=== PATIENT | female | born 1995 | race Caucasian/White ===

== ENCOUNTER → 2017-01-14 | Outpatient (CLI) | payer BC, OTHER ==
[2017-01-14 11:45] LABS: CHCM 34.9; HCT 39.2 % (34.0-46.0); HDW 2.59; MCH 30.5 pg (25.0-35.0); MCHC 33.1 g/dL (31.0-37.0); MCV 92.2 fL (80.0-100.0); Mean Platelet Volume 7.4; RBC 4.25 m/uL (3.80-5.40); RDW 13.9 % (11.5-15.5); WBC 10.2 k/uL (3.8-10.6)
[2017-01-14 12:08] LABS: Glucose 87 mg/dL (74-99); Non-African American GFR(MDRD) >60 (>60 ml/min/1.73 sqM)
[2017-01-14 12:31] LABS: Hepatitis B Surface Ag Index 0.04
[2017-01-14 15:32] LABS: Treponemal Ab Non-Reactive (Non-Reactive)
== END | disposition home or self-care (01) ==
LOC: LABWHC1 10:56
PROVIDERS: ATTEND Obstetrics & Gynecology
DX: O26.812 Pregnancy related exhaustion and fatigue, second trimester (principal); Z3A.00 Weeks of gestation of pregnancy not specified
CPT/HCPCS: 36415; 82565; 82947; 85027; 86762; 86780; 86850; 86900; 86901; 87340; 87390

== ENCOUNTER 2017-04-30 15:07 | Outpatient (CLI) | payer BC, OTHER ==
[2017-04-30 16:12] VITALS: BP 131/74; PULSE 110; RESP 16; TEMP 97.8
--- NOTE | 2017-05-01 06:21 | P.MSEPDOC ---
Presenting Problems - Arrival Data Date of Arrival on Unit: 04/30/17 Time of Arrival on Unit: 15:15 Mode of Transport: Ambulatory - Complaint OB-Reason for Admission/Chief Complaint: Decreased Movement Comment: reports decreased fm since yesterday morning Medical History - Information : 1 Para: 0 Term: 0 : 0 Abortions: Spontaneous or Elective: 0 Number of Living Children: 0 - Gestational Age Gestational Age by KISHA (wks/days): 28 Weeks and 4 Days Review of Systems - Review of Systems Constitutional: No problems Breast: No problems ENT: No problems Cardiovascular: No problems Respiratory: No problems Gastrointestinal: No problems Genitourinary: No problems Musculoskeletal: No problems Neurological: No problems Skin: No problems Vital Signs - Temperature Temperature: 97.8 F Temperature Source: Oral - Pulse Right Brachial Pulse Rate: 110 Pulse Assessment Method: Automatic Cuff - Respirations Respiratory Rate: 16 Oxygen Delivery Method: Room Air - Blood Pressure Right Arm Blood Pressure: 131/74 Blood Pressure Mean: 93 Blood Pressure Source: Automatic Cuff Medical Screen Scoring (Pre) - Cervical Exam Dilation: Exam Deferred - Uterine Contractions Frequency: N/A - Maternal Vital Signs Maternal Temperature: N/A Maternal Blood Pressure: N/A Signs of Preeclampsia: N/A Maternal Respirations: N/A - Pain Assessment Pain Intensity: 0 - Maternal Trauma Maternal Trauma: N/A - Assessment Heart Rate - NICHD Category: Category I (Normal) = 0 - Total Score Total Score (Pre): 0 - Level of Risk Level of Risk: Low (0-5) Physician Notification (Pre) - Physician Notified Physician Notified Date: 04/30/17 Physician Notified Time: 15:45 Physician/Practitioner Notifed:: margo Spoke With: margo New Order Received: Yes - Notification Comment Comment: reported pt visit to triage reporting decreased fm. reported reactive nst and positive fm. aragon orders discharge with fm education Disposition - Disposition OB Disposition: Discharge to home Discharge Date: 04/30/17 Discharge Time: 15:56 I agree with the RN Medical Screening Exam: Yes Risk & Benefit of care provided described in d/c instruction: Yes Diagnosis: DECREASED MOVEMENTS, THIRD TRIMESTER, FETUS 1
== END 2017-04-30 15:56 | disposition home or self-care (01) ==
LOC: FBPOP 15:07
PROVIDERS: ATTEND Obstetrics & Gynecology
DX: O36.8130 Decreased fetal movements, third trimester, not applicable or unspecified (principal); Z3A.28 28 weeks gestation of pregnancy
CPT/HCPCS: 59025; 99213

== ENCOUNTER 2017-07-08 11:20 | Inpatient (IN) | payer BC, OTHER ==
[2017-07-08 12:44] LABS: Appearance,Urine Cloudy (Clear); Bacteria,Urine Occasional /hpf; Bilirubin,Urine Negative (Negative); Blood,Urine Negative (Negative); Color,Urine Yellow; Glucose,Urine (UA) Negative (Negative); Ketones,Urine Negative (Negative); Leukocyte Esterase,Urine Negative (Negative); Mucus,Urine Occasional /hpf; Nitrite,Urine Negative (Negative); Protein,Urine Trace (Negative); RBC,Urine 4 /hpf (0-5); Squamous Epithelial Cell,Urine 9 /hpf (0-4); Urobilinogen,Urine <2.0 mg/dL (<2.0); WBC,Urine 5 /hpf (0-5)
[2017-07-08 12:47] LABS: Basophils % (A) 0 %; Eosinophils # (A) 0.1 k/uL (0-0.7); Eosinophils % (A) 1 %; HCT 36.6 % (34.0-46.0); HGB 12.1 gm/dL (11.4-16.0); Lymphocytes # (A) 1.3 k/uL (1.0-4.8); Lymphocytes % (A) 12 %; MCH 29.2 pg (25.0-35.0); MCV 88.4 fL (80.0-100.0); Monocytes # (A) 0.5 k/uL (0-1.0); Monocytes % (A) 5 %; Neutrophils # (A) 9.3 k/uL (1.3-7.7); Neutrophils % (A) 82 %; Platelet Count 178 k/uL (150-450); RBC 4.14 m/uL (3.80-5.40); RDW 13.7 % (11.5-15.5); WBC 11.3 k/uL (3.8-10.6)
[2017-07-08 12:59] LABS: ALT 28 U/L (9-52); AST 20 U/L (14-36); Blood Urea Nitrogen 9 mg/dL (7-17); Glucose 66 mg/dL (74-99); LDH 410 U/L (313-618)
--- NOTE | 2017-07-08 13:16 | US ---
EXAMINATION TYPE: US OB >= 14 wk fetus DATE OF EXAM: 07/08/2017 COMPARISON: None CLINICAL HISTORY: Increased BP, Gestational diabetes, pressure, swelling in hands and feet per gerhard payan TECHNIQUE: Transabdominal (TA) GESTATIONAL AGE / DATING Physician Established: (38 weeks/3 days) EDC: 07/19/2017 Dates by LMP: (38 weeks/3 days) EDC: 07/19/2017 Dates by First Scan: No previous this is first scan Dates by Current Scan: (39 weeks/4 days) EDC: 07/11/2017 Beta HCG (if available): Not available at this time SURVEY IUP: Single PLACENTA: Anterior PREVIA: No Previa NICOLE: 13.2 cm Normal CERVICAL LENGTH (transabdominal: norm > 3.0cm): 3.7 cm BIOMETRY PRESENTATION: Vertex LIE: Longitudinal BPD: 9.38 cm 38 weeks / 1 days HC: 34.23 cm 39 weeks / 3 days AC: 36.14 cm 40 weeks / 0 days FL: 7.94 cm 40 weeks / 4 days ESTIMATED WEIGHT IN GRAMS: 3906 grams ESTIMATED WEIGHT IN LBS/OZ: 8 lbs. 10 oz. WEIGHT PERCENTAGE BASED ON ESTABLISHED DATES: 91.6% HC/AC: 0.95 Normal FL/AC: 21.97 Normal HEART RATE: 148 bpm RHYTHM: Normal MATERNAL WALL MEASUREMENT: 4.1 cm from skin to anterior uterine wall (if exam limited due to body hab itus). Viable IUP with an KISHA of 07/11/2017 on this exam. Hypoechoic area visualized within placenta measuri ng 0.8 x 0.9 x1.0 cm, possible placental harrington The placenta is anterior. IMPRESSION: Single viable intrauterine corresponding to ultrasound age of 39 weeks 4 days with estimate d date of delivery 07/11/2017. Anterior placenta. Limited survey.
[2017-07-08] MEDS ORDERED: CITRIC ACID-SODIUM CITRATE 15 ML CUP PO ONE (15:00)
[2017-07-08 15:06] LABS: Glucose,Whole Blood 72 mg/dL (75-99)
[2017-07-08 15:21] VITALS: BMI 43.9
[2017-07-08 15:24] LABS: Basophils % (A) 0 %; Eosinophils # (A) 0.1 k/uL (0-0.7); Eosinophils % (A) 1 %; HCT 38.6 % (34.0-46.0); HGB 12.9 gm/dL (11.4-16.0); Lymphocytes # (A) 1.4 k/uL (1.0-4.8); Lymphocytes % (A) 11 %; MCH 29.8 pg (25.0-35.0); MCHC 33.5 g/dL (31.0-37.0); Mean Platelet Volume 8.2; Monocytes # (A) 0.6 k/uL (0-1.0); Monocytes % (A) 5 %; Neutrophils # (A) 10.1 k/uL (1.3-7.7); Neutrophils % (A) 82 %; Platelet Count 200 k/uL (150-450); RBC 4.34 m/uL (3.80-5.40); RDW 13.8 % (11.5-15.5); WBC 12.3 k/uL (3.8-10.6)
[2017-07-08] MEDS: LACTATED RINGERS 1,000 ML IV SCH ×2 (15:55→21:02)
[2017-07-08] MEDS ORDERED: ONDANSETRON 4 MG/2 ML VIAL ONE (17:05)
[2017-07-08] MEDS ORDERED: MORPHINE SULFATE (PF) 0.3 MG/0.3 ML SYR ONE (17:05)
[2017-07-08] MEDS ORDERED: OXYTOCIN 10 UNIT/ML 1 ML VIAL ONE (17:05)
[2017-07-08] MEDS ORDERED: NALBUPHINE 10 MG/ML AMPUL ONE (17:05)
[2017-07-08] MEDS ORDERED: KETOROLAC 30 MG/ML 1 ML VIAL ONE (17:05)
[2017-07-08] MEDS ORDERED: diphenhydrAMINE 25 MG CAP PO PRN (17:45)
[2017-07-08] MEDS ORDERED: METOCLOPRAMIDE 5 MG/ML 2 ML VIAL IVP PRN (17:45)
[2017-07-08] MEDS ORDERED: diphenhydrAMINE 50 MG CAP PO PRN (17:45)
[2017-07-08] MEDS ORDERED: ACETAMINOPHEN TAB 325 MG TAB PO PRN (17:45)
[2017-07-08] MEDS ORDERED: ONDANSETRON 4 MG/2 ML VIAL IVP PRN (17:45)
[2017-07-08] MEDS ORDERED: ZOLPIDEM 5 MG TAB PO PRN (17:45)
[2017-07-08] MEDS ORDERED: NALOXONE 0.4 MG/ML 1 ML VIAL IV PRN (17:45)
[2017-07-08] MEDS ORDERED: diphenhydrAMINE 50 MG/ML 1 ML VIAL IVP PRN ×2 (17:45)
--- NOTE | 2017-07-08 17:51 | P.HPOB ---
History of Present Illness H&P Date: 07/08/17 Chief Complaint: IUP term: gest hypertension: gest DM: macrosomia Patient is a 22-year-old at 38 weeks gestation who arrives the office today for her visit. On exam was noted that she had an elevated blood pressure of 130s over 90s. And with her history of gestational diabetes a decision to send her to labor and delivery for full evaluation was done. One labor and delivery she continued to have mildly elevated blood pressures on occasion. It is noted that she also has 2+ pitting edema and hand and facial edema and a 10 pound weight gain last week. She also has trace protein and her platelets are noted to be low normal. Concern over gestational hypertension versus early preeclampsia was made and therefore decision to deliver her today was made. A lengthy discussion was held with the patient due to her history of gestational diabetes and suspected macrosomia on whether not to proceed with induction of labor versus moving forward with a primary section. Risks /benefits of each were discussed with the patient in great detail and all questions were answered for her prior to proceeding with a primary section. It was noted on ultrasound today that the expected weight was 8 lbs. 10 oz. but these are often off by a significant margin due to advanced size the baby as well as position. That number however, is greater than the 95th percentile and with her history of gestational diabetes she is at increased risk of shoulder dystocia and its resultant competitions. Due to that a primary has been scheduled. Risks/benefits of this including bleeding, infection, damage to bladder or bowel, vascular injuries, nerve damage were all reviewed with the patient in detail. On physical exam other than mild elevation of blood pressure her vital signs are stable. She is afebrile. Heart regular, lungs clear, extremities without pain. Abdomen is soft gravid uterus is noted. She is noted to be obese. Extremities are without pain but do have some pitting edema. Deep tendon reflexes are 2+. Assessment intrauterine at 38 weeks with gestational hypertension and a Precis, K by gestational diabetes for which she has been on insulin and has seen maternal medicine. Plan primary low transverse section Past Medical History Past Medical History: No Reported History Additional Past Medical History / Comment(s): ovarian cyst History of Any Multi-Drug Resistant Organisms: None Reported Past Surgical History: Appendectomy Past Anesthesia/Blood Transfusion Reactions: No Reported Reaction Past Psychological History: ADD/ADHD, Anxiety Smoking Status: Current every day smoker Past Alcohol Use History: Occasional Past Drug Use History: None Reported - Past Family History Father History Unknown: Yes Additional Family Medical History / Comment(s): mother diabetes and hypertension Medications and Allergies Home Medications Medication Instructions Recorded Confirmed Type INSULIN LISPRO (humaLOG) [humaLOG] 16 units SQ DIRECTED 07/08/17 07/08/17 History INSULIN LISPRO (humaLOG) [humaLOG] 18 units SQ AC-SUPPER 07/08/17 07/08/17 History Insulin Aspart [Novolog] 22 unit SQ QAM 07/08/17 07/08/17 History Insulin Aspart [Novolog] 32 unit SQ HS 07/08/17 07/08/17 History Ttl-Wawu-Snnmn Acid 1 cap PO DAILY 07/08/17 07/08/17 History [-U Capsule (formulary)] Allergies Allergy/AdvReac Type Severity Reaction Status Date / Time No Known Allergies Allergy Verified 07/08/17 11:39 Exam Osteopathic Statement: *. No significant issues noted on an osteopathic structural exam other than those noted in the History and Physical/Consult. - Vital Signs Vital signs: Vital Signs Temp Pulse Resp 07/08/17 14:44 98.6 F 97 16 Intake and Output 07/08/17 07/08/17 07/08/17 06:59 14:59 22:59 Other: Weight 138.799 kg Results Result Diagrams: 07/08/17 14:55 07/08/17 12:31 Abnormal Lab Results - Last 24 Hours (Table) 07/08/17 07/08/17 07/08/17 Range/Units 11:20 12:31 12:31 WBC 11.3 H (3.8-10.6) k/uL Neutrophils # 9.3 H (1.3-7.7) k/uL Glucose 66 L (74-99) mg/dL POC Glucose (mg/dL) (75-99) mg/dL Urine Appearance Cloudy H (Clear) Urine Protein Trace H (Negative) Ur Squamous Epith Cells 9 H (0-4) /hpf Urine Bacteria Occasional H (None) /hpf Urine Mucus Occasional H (None) /hpf 07/08/17 07/08/17 Range/Units 14:52 14:55 WBC 12.3 H (3.8-10.6) k/uL Neutrophils # 10.1 H (1.3-7.7) k/uL Glucose (74-99) mg/dL POC Glucose (mg/dL) 72 L (75-99) mg/dL Urine Appearance (Clear) Urine Protein (Negative) Ur Squamous Epith Cells (0-4) /hpf Urine Bacteria (None) /hpf Urine Mucus (None) /hpf
--- NOTE | 2017-07-08 17:55 | P.OP ---
Date of Procedure: 07/08/17 Preoperative Diagnosis: intrauterine at term: Gestational hypertension: Gestational diabetes: Macrosomia Postoperative Diagnosis: Same Procedure(s) Performed: Primary low transverse section Anesthesia: spinal Surgeon: Franklin Sheffield Adhesion Tester #1: Connor Rogel Estimated Blood Loss (ml): 600 IV fluids (ml): 1,200 Urine output (ml): 200 Pathology: other (Placenta) Condition: stable Disposition: floor Operative Findings: Female scores of 8 and 9 at one and 5 inches Ramya and weight was 9 lbs. 0 oz. Description of Procedure: Patient was taken to the operating suite where a spinal anesthetic was found be adequate. She was prepped and draped in the normal sterile fashion and placed in the dorsal supine position with leftward tilt. Initially a Pfannenstiel skin incision was made and this incision was then carried through to underlying layer of the fascia with the second knife. Fascia was then nicked in the midline and this opening was extended laterally with Fuller scissors. Superior and inferior aspect of this incision were then grasped tented up and bluntly and sharply dissected off the rectus muscles. Rectus muscles were then divided in the midline and sharp dissection through the peritoneum was made. This opening was then extended superiorly and inferiorly with good visualization of both bowel bladder. Bladder blade was then placed and the bladder flap was identified and entered sharply with Metzenbaum scissors. This opening was then extended across face of the uterus with Metzenbaum scissors and her bladder flap was digitally created. Knife was then used to incise uterus this opening was fully developed with a hemostat. Opening was then extended bluntly and head was atraumatically delivered. There was a compound cord. Head was delivered mouth and nares were bulb suctioned and the anterior and posterior shoulders were delivered with gentle downward and upward traction. The remainder the baby was then delivered and the umbilical cord was clamped and cut in usual fashion. Nursery personnel was present to assume care. Placenta was then delivered intact and Pitocin was added to the IV. Uterus was then exteriorized cleared of clots and debris and closed in 2 layers with 0 Vicryl suture. Once excellent hemostasis was obtained blood and debris was suctioned from the posterior cul-de-sac and uterus was reinserted into the abdomen. Peritoneal layer was then closed with 0 Vicryl suture fascial layer was closed with Vicryl suture one layer of 3-0 Vicryl was placed in deep subcuticular tissues reapproximate the skin and close the space and the skin was then closed with 3-0 Vicryl on a Fransisco needle. Sponge, lap, needle counts were all correct 2. Patient was then taken to the recovery room in stable and satisfactory condition.
[2017-07-08] MEDS: SENNOSIDES-DOCUSATE SODIUM 1 EACH TAB PO SCH (21:43)
[2017-07-08] MEDS: KETOROLAC 30 MG/ML 1 ML VIAL IVP PRN (23:28)
[2017-07-08] MEDS: ceFAZolin 1,000 MG in DEXTROSE/WATER 1 50ML.BAG IVPB SCH (23:57)
[2017-07-09] MEDS: LACTATED RINGERS 1,000 ML IV SCH (06:12)
[2017-07-09] MEDS: ceFAZolin 1,000 MG in DEXTROSE/WATER 1 50ML.BAG IVPB SCH ×2 (06:13→13:22)
[2017-07-09 06:15] LABS: Basophils % (A) 0 %; Eosinophils # (A) 0.1 k/uL (0-0.7); Eosinophils % (A) 1 %; HCT 31.3 % (34.0-46.0); HGB 10.8 gm/dL (11.4-16.0); Lymphocytes # (A) 1.6 k/uL (1.0-4.8); Lymphocytes % (A) 17 %; MCH 30.5 pg (25.0-35.0); MCHC 34.4 g/dL (31.0-37.0); MCV 88.6 fL (80.0-100.0); Mean Platelet Volume 7.8; Monocytes # (A) 0.5 k/uL (0-1.0); Monocytes % (A) 5 %; Neutrophils # (A) 7.1 k/uL (1.3-7.7); Neutrophils % (A) 75 %; Platelet Count 162 k/uL (150-450); RBC 3.53 m/uL (3.80-5.40); RDW 13.7 % (11.5-15.5); WBC 9.4 k/uL (3.8-10.6)
--- NOTE | 2017-07-09 07:57 | P.PN ---
Progress Note - Text Date: 07/09/2017 Time: 07 The patient is status post section Vital signs stable VAS:0-10 Patient has no complaints of pain. The patient incurred some minimal itching yesterday, this itching is now subsiding. Pain meds to be managed by service.
[2017-07-09] MEDS: SENNOSIDES-DOCUSATE SODIUM 1 EACH TAB PO SCH ×2 (08:11→20:01)
[2017-07-09] MEDS: KETOROLAC 30 MG/ML 1 ML VIAL IVP PRN ×2 (11:10→18:06)
--- NOTE | 2017-07-09 13:24 | P.PNOBGPC ---
Subjective - Subjective Principal diagnosis: Postop day 1 Interval history: Doing very well, voices no complaints. Patient reports: Reports appetite normal, Reports voiding normally, Reports pain well controlled, Reports ambulating normally : doing well Objective - Vital Signs Latest vital signs: Vital Signs Temp Pulse Resp BP BP Pulse Ox 07/09/17 08:00 98.1 F 80 14 121/73 07/09/17 00:00 97.9 F 80 16 121/71 95 07/08/17 20:00 98.0 F 65 16 122/56 98 07/08/17 19:33 97.7 F 76 16 134/61 98 07/08/17 19:03 64 16 145/75 07/08/17 18:48 76 16 134/68 07/08/17 18:33 99 18 136/64 07/08/17 18:18 83 16 117/66 07/08/17 18:03 98.3 F 68 16 118/66 07/08/17 14:44 98.6 F 97 16 Intake and Output 07/08/17 07/09/17 07/09/17 22:59 06:59 14:59 Intake Total 50 Output Total 800 900 300 Balance -800 -850 -300 Intake: IV 50 ceFAZolin 1,000 mg In 50 Dextrose/Water 1 50ml.bag @ 100 mls/hr IVPB Q6HR [facility] Rx#:[id number] Output: Urine 900 300 Uretheral ([place]ley) 450 Estimated Blood Loss 800 Other: Voiding Method Indwelling Catheter # Voids 1 - Exam Lungs: bilateral: normal Chest: Normal S1, Normal S2 Extremities: Present: normal Abdomen: Present: normal appearance, soft. Absent: distention, tenderness Incision: Present: normal, dry, intact Uterus: Present: normal, firm - Labs Labs: Abnormal Lab Results - Last 24 Hours (Table) 07/08/17 07/08/17 07/09/17 Range/Units 14:52 14:55 05:59 WBC 12.3 H (3.8-10.6) k/uL RBC 3.53 L (3.80-5.40) m/uL Hgb 10.8 L (11.4-16.0) gm/dL Hct 31.3 L (34.0-46.0) % Neutrophils # 10.1 H (1.3-7.7) k/uL POC Glucose (mg/dL) 72 L (75-99) mg/dL
[2017-07-09 14:16] LABS: Hemoglobin A1C 5.2 % (4.0-6.0)
[2017-07-10] MEDS: Acetaminophen-Codeine 300-30mg TAB PO PRN ×2 (00:49→05:53)
[2017-07-10] MEDS: LACTATED RINGERS 1,000 ML IV SCH ×4 (01:14→04:48)
[2017-07-10] MEDS: IBUPROFEN 600 MG TAB PO PRN ×3 (02:05→19:59)
--- NOTE | 2017-07-10 08:53 | P.PNOBGPC ---
Subjective - Subjective Principal diagnosis: Postop day 2 Interval history: Overall patient is doing very well postop day 2. She is involuting, voiding and she is tolerating her diet. She is requesting to stay until tomorrow at which time we will reevaluate for discharge. Patient reports: Reports appetite normal, Reports voiding normally, Reports pain well controlled, Reports ambulating normally [place]: doing well Objective - Vital Signs Latest vital signs: Vital Signs Temp Pulse Resp BP Pulse Ox 07/10/17 00:00 98.1 F 93 18 127/71 97 07/09/17 16:00 98.8 F 78 14 115/78 07/09/17 12:00 98.1 F 84 14 122/67 - Exam Lungs: bilateral: normal Chest: Normal S1, Normal S2 Extremities: Present: normal Abdomen: Present: normal appearance, soft. Absent: distention, tenderness Incision: Present: normal, dry, intact Uterus: Present: normal, firm
[2017-07-10] MEDS ORDERED: HYDROcodone/APAP 5-325MG 1 EACH TAB PO PRN (09:35)
[2017-07-10] MEDS: HYDROcodone/APAP 5-325MG 1 EACH TAB PO PRN ×3 (09:50→23:01)
[2017-07-10] MEDS: SENNOSIDES-DOCUSATE SODIUM 1 EACH TAB PO SCH ×2 (10:01→23:02)
[2017-07-11] MEDS: IBUPROFEN 600 MG TAB PO PRN ×2 (02:23→08:14)
[2017-07-11] MEDS: HYDROcodone/APAP 5-325MG 1 EACH TAB PO PRN ×2 (06:18→13:22)
[2017-07-11] MEDS: SENNOSIDES-DOCUSATE SODIUM 1 EACH TAB PO SCH (08:15)
[2017-07-11 08:34] VITALS: BP 119/71; PULSE 86; RESP 18; TEMP 97.5
--- NOTE | 2017-07-11 10:55 | P.DS ---
Providers Date of admission: 07/08/17 13:59 Expected date of discharge: 07/11/17 Attending physician: Franklin Sheffield Primary care physician: Stated None Hospital Course: Please see history and physical for details of patient's admission. She underwent a primary low transverse section on 07/08/2017 and delivered a viable female with scores of 8 at 1 minute and 9 at 5 minutes and infant weight of 9 lbs. 0 oz. Her postoperative course has been essentially uncomplicated. Vital signs are stable. Abdomen is soft with positive bowel sounds 4. Incision is clean dry and intact. Extremities show negative Homans. Impression is status post prior very low transverse section postoperative day #3. Plan is to discharge home today. Routine postoperative and instructions are given. She is advised to follow- up Dr. Sheffield in approximately 1-2 weeks and in 6 weeks for check. She is advised to call the office if she has any further questions or concerns prior to her appointment time. Procedures: Primary low transverse section on 07/08/2017 Patient Condition at Discharge: Stable Plan - Discharge Summary New Discharge Prescriptions: New Acetaminophen-Codeine 300-30mg [Tylenol #3] 1 tab PO Q4H PRN #30 tablet PRN Reason: Pain Ibuprofen [Motrin] 600 mg PO Q6HR PRN #30 tab PRN Reason: Pain HYDROcodone/APAP 5-325MG [[place] 5-325] 1 tab PO Q4HR PRN #30 tab PRN Reason: Pain No Action Sci-Zrof-Gpgqt Acid [-U Capsule (formulary)] 1 cap PO DAILY INSULIN LISPRO (humaLOG) [humaLOG] 16 units SQ DIRECTED Insulin Aspart [Novolog] 32 unit SQ HS Insulin Aspart [Novolog] 22 unit SQ QAM INSULIN LISPRO (humaLOG) [humaLOG] 18 units SQ AC-SUPPER Discharge Medication List INSULIN LISPRO (humaLOG) [humaLOG] 16 units SQ DIRECTED 07/08/17 [History] INSULIN LISPRO (humaLOG) [humaLOG] 18 units SQ AC-SUPPER 07/08/17 [History] Insulin Aspart [Novolog] 22 unit SQ QAM 07/08/17 [History] Insulin Aspart [Novolog] 32 unit SQ HS 07/08/17 [History] Rda-Uvjc-Dfxxi Acid [-U Capsule (formulary)] 1 cap PO DAILY [History] Acetaminophen-Codeine 300-30mg [Tylenol #3] 1 tab PO Q4H PRN #30 tablet [Rx] HYDROcodone/APAP 5-325MG [[place] 5-325] 1 tab PO Q4HR PRN #30 tab 07/10/17 [Rx] Ibuprofen [Motrin] 600 mg PO Q6HR PRN #30 tab 07/10/17 [Rx] Follow up Appointment(s)/Referral(s): Franklin Sheffield DO [Doctor of Osteopathic Medicine] - 1 Week Activity/Diet/Wound Care/Special Instructions: No heavy lifting, limit stairs and driving and pelvic rest. If any high temperatures, heavy bleeding, or severe pain call my office. Try to wash the incision to 3 times a day with gentle soap and water and Pat dry. Discharge Disposition: HOME SELF-CARE
== END 2017-07-11 13:00 | disposition home or self-care (01) | DRG 766 ==
LOC: FBPOP 11:20 → 4FBP 13:59
PROVIDERS: ADMIT Obstetrics & Gynecology; ATTEND Obstetrics & Gynecology
PROC: 10D00Z1 Extraction of Products of Conception, Low, Open Approach (ICD-10-PCS; principal; 2017-07-08 17:15)
DX: O13.4 Gestational [pregnancy-induced] hypertension without significant proteinuria, complicating childbirth (principal); O24.424 Gestational diabetes mellitus in childbirth, insulin controlled; F41.9 Anxiety disorder, unspecified; O36.63X0 Maternal care for excessive fetal growth, third trimester, not applicable or unspecified; O99.334 Smoking (tobacco) complicating childbirth; F90.9 Attention-deficit hyperactivity disorder, unspecified type; O99.344 Other mental disorders complicating childbirth; O32.6XX0 Maternal care for compound presentation, not applicable or unspecified; Z37.0 Single live birth; Z3A.38 38 weeks gestation of pregnancy; Z83.3 Family history of diabetes mellitus; Z82.49 Family history of ischemic heart disease and other diseases of the circulatory system; Z98.890 Other specified postprocedural states
CPT/HCPCS: 59025; 76805; 81001; 82565; 82947; 83036; 83615; 84450; 84460; 84520; 84550; 85025; 86850; 86900; 86901; 88307

== ENCOUNTER 2018-03-01 13:57 | Emergency (ER) | payer BC, OTHER ==
[2018-03-01 14:09] VITALS: RESP 18; TEMP 98.1
[2018-03-01] MEDS ORDERED: LIDOCAINE 1% INJ 10MG/ML (20 ML MDV) SQ STA (16:30)
[2018-03-01 16:31] LABS: Appearance,Urine Cloudy (Clear); Bacteria,Urine Rare /hpf; Bilirubin,Urine Negative (Negative); Blood,Urine Negative (Negative); Color,Urine Yellow; Glucose,Urine (UA) Negative (Negative); Ketones,Urine Negative (Negative); Leukocyte Esterase,Urine Negative (Negative); Mucus,Urine Many /hpf; Nitrite,Urine Negative (Negative); PH, Urine 5.5 (5.0-8.0); Protein,Urine Trace (Negative); RBC,Urine 7 /hpf (0-5); Specific Gravity,Urine 1.023 (1.001-1.035); Squamous Epithelial Cell,Urine 12 /hpf (0-4); Urobilinogen,Urine <2.0 mg/dL (<2.0)
--- NOTE | 2018-03-01 17:03 | ED ---
General Adult HPI - General Chief complaint: Skin/Abscess/Foreign Body Stated complaint: needs cyst drained Source: patient, RN notes reviewed, old records reviewed Mode of arrival: ambulatory Limitations: no limitations - History of Present Illness Initial comments: 22-year-old female patient presents to ED with 5 day history of pain at intergluteal cleft. patient is , 12 weeks gestation. Patient has a history of pilonidal cyst approximately 5 years ago. patient was seen by primary care physician earlier today for evaluation of potential pilonidal cyst. Patient was referred to ED in order to attempt an I&D. Patient denies any other symptoms including fever chills, nausea vomiting diarrhea, abdominal pain, chest pain, shortness of breath. Systemic: Pt denies fatigue, myalgia, fever/chills, rash. Pt denies weakness, night sweats, weight loss. Neuro: Pt denies headache, visual disturbances, syncope or pre-syncope. HEENT: Pt denies ocular discharge or irritation, otalgia, rhinorrhea, pharyngitis or notable lymphadenopathy. Cardiopulmonary: Pt denies chest pain, SOB, heart palpitations, dyspnea on exertion. Abdominal/GI: Pt denies abdominal pain, n/v/d. : Pt denies dysuria, burning w/ urination, frequency/urgency. Denies new onset urinary or bowel incontinence. MSK: Pt denies myalgia, loss of strength or function in extremities. - Related Data Home Medications Medication Instructions Recorded Confirmed Hzp-Pxoa-Nkplq Acid 1 cap PO DAILY 07/08/17 03/01/18 [-U Capsule (formulary)] Previous Rx's Medication Instructions Recorded Cephalexin [Keflex] 500 mg PO Q6HR 7 Days #28 cap 03/01/18 Allergies Allergy/AdvReac Type Severity Reaction Status Date / Time No Known Allergies Allergy Verified 03/01/18 14:41 Review of Systems ROS Statement: Those systems with pertinent positive or pertinent negative responses have been documented in the HPI. ROS Other: All systems not noted in ROS Statement are negative. Past Medical History Past Medical History: No Reported History Additional Past Medical History / Comment(s): ovarian cyst History of Any Multi-Drug Resistant Organisms: None Reported Past Surgical History: Appendectomy, Section Past Anesthesia/Blood Transfusion Reactions: No Reported Reaction Past Psychological History: ADD/ADHD, Anxiety Smoking Status: Current every day smoker Past Alcohol Use History: None Reported Past Drug Use History: None Reported - Past Family History Father History Unknown: Yes Additional Family Medical History / Comment(s): mother diabetes and hypertension General Exam - General Exam Comments Initial Comments: Constitutional: NAD, AOX3, Pt has pleasant affect. HEENT: NC/AT, trachea midline, neck supple, no lymphadenopathy. Posterior pharynx non erythematous, without exudates. External ears appear normal, without discharge. Mucous membranes moist. Eyes PERRLA, EOM intact. There is no scleral icterus. No pallor noted. Cardiopulmonary: RRR, no murmurs, rubs or gallops, no JVD noted. Lungs CTAB in anterior and posterior mueller. No peripheral edema. Abdominal exam: Abdomen soft and non-distended. Abdomen non-tender to palpation in all 4 quadrants. Bowel sounds active in LLQ. No hepatosplenomegaly. Neuro: CN II-XII grossly intact. rectal: Approximately 3 x 3 cm erythematous area at the apex of the intergluteal cleft. There is warm, tender to palpation. No streaking. Area of minimal fluctuance and coccyx. I&D was attempted. No purulent fluid was expressed. External rectal exam otherwise benign, no other areas of erythema. Limitations: no limitations Course Vital Signs 03/01/18 03/01/18 03/01/18 14:05 16:13 18:04 Temperature 98.1 F Pulse Rate 124 H 85 80 Respiratory 18 18 18 Rate Blood Pressure 135/85 131/80 110/75 O2 Sat by Pulse 100 98 98 Oximetry Procedures - Incision & Drainage Consent Obtained: verbal consent Time Out Performed?: Yes Site: buttock Anesthetic Used: lidocaine 1% Amount (mLs): 2 I&D Cleaning Method: Chloroprep, Betadine Sterile Field Used?: Yes Scalpel Used: #11 I&D Drainage Obtained: Other (zero) Medical Decision Making - Medical Decision Making 22-year-old female patient presents to ED with 5 day history of pain at intergluteal cleft. patient is , 12 weeks gestation. Patient has a history of pilonidal cyst approximately 5 years ago. patient was seen by primary care physician earlier today for evaluation of potential pilonidal cyst. Patient was referred to ED in order to attempt an I&D. Patient denies any other symptoms including fever chills, nausea vomiting. vital signs are stable. physical exam displayed a pilonidal cysts at apex of intergluteal cleft. Small area of fluctuance noted. I indeed attempted. No purulent fluid was able to be expressed. Patient given prescription for Keflex. Patient given outpatient referral to general surgery for continued evaluation. Patient to follow with PCP in one to days. Patient to continue to monitor pilonidal cyst. Patient to return to ED if any new symptoms develop including worsening pain, enlargement of erythema, nausea vomiting diarrhea, fever chills, systemic signs of infection, or any other new symptoms. Case discussed with Dr. Welsh. - Lab Data Lab Results 03/01/18 03/01/18 Range/Units 16:10 16:10 Urine Color Yellow Urine Appearance Cloudy H (Clear) Urine pH 5.5 (5.0-8.0) Ur Specific [place] 1.023 (1.001-1.035) Urine Protein Trace H (Negative) Urine Glucose (UA) Negative (Negative) Urine Ketones Negative (Negative) Urine Blood Negative (Negative) Urine Nitrite Negative (Negative) Urine Bilirubin Negative (Negative) Urine Urobilinogen <2.0 (<2.0) mg/dL Ur Leukocyte Esterase Negative (Negative) Urine RBC 7 H (0-5) /hpf Urine WBC 1 (0-5) /hpf Ur Squamous Epith Cells 12 H (0-4) /hpf Urine Bacteria Rare H (None) /hpf Urine Mucus Many H (None) /hpf Urine HCG, Qual Detected (Not Detectd) Disposition Clinical Impression: Pilonidal cyst without abscess Disposition: HOME SELF-CARE Condition: Good Instructions: Pilonidal Cyst (ED), Sitz Bath (DC), Warm Compress or Soak (ED) Additional Instructions: Patient to adhere to previously discussed treatment plan and will take medication(s) as directed. Patient to follow up with PCP in 1-2 days. Patient to return to ED if symptoms do not improve. Prescriptions: Cephalexin [Keflex] 500 mg PO Q6HR 7 Days #28 cap Is patient prescribed a controlled substance at d/c from ED?: No Referrals: Sheri Rodrigues MD [Primary Care Provider] - 1-2 days Gerry Gilliam MD [STAFF PHYSICIAN] - 1-2 days
[2018-03-01 18:05] VITALS: BP 110/75; PULSE 80
== END 2018-03-01 18:04 | disposition home or self-care (01) ==
LOC: EC 13:57
DX: O99.711 Diseases of the skin and subcutaneous tissue complicating pregnancy, first trimester (principal); L05.91 Pilonidal cyst without abscess; O99.331 Smoking (tobacco) complicating pregnancy, first trimester; F17.200 Nicotine dependence, unspecified, uncomplicated; Z3A.12 12 weeks gestation of pregnancy
CPT/HCPCS: 81001; 81025; 99283; 10060; J2001

== ENCOUNTER 2018-08-24 09:16 | Outpatient (CLI) | payer BC, OTHER ==
[2018-08-24 10:04] LABS: Appearance,Urine Cloudy (Clear); Bacteria,Urine Rare /hpf; Bilirubin,Urine Negative (Negative); Blood,Urine Negative (Negative); Color,Urine Yellow; Glucose,Urine (UA) Negative (Negative); Ketones,Urine Trace (Negative); Leukocyte Esterase,Urine Negative (Negative); Mucus,Urine Rare /hpf; Nitrite,Urine Negative (Negative); Protein,Urine Trace (Negative); RBC,Urine 1 /hpf (0-5); Squamous Epithelial Cell,Urine 20 /hpf (0-4); Urobilinogen,Urine <2.0 mg/dL (<2.0); WBC,Urine 1 /hpf (0-5)
[2018-08-24 10:25] LABS: Basophils % (A) 0 %; Eosinophils # (A) 0.1 k/uL (0-0.7); Eosinophils % (A) 1 %; HCT 38.5 % (34.0-46.0); HGB 13.2 gm/dL (11.4-16.0); Lymphocytes # (A) 1.3 k/uL (1.0-4.8); Lymphocytes % (A) 13 %; MCH 30.6 pg (25.0-35.0); MCHC 34.4 g/dL (31.0-37.0); MCV 89.1 fL (80.0-100.0); Mean Platelet Volume 7.7; Monocytes # (A) 0.4 k/uL (0-1.0); Monocytes % (A) 4 %; Neutrophils # (A) 8.7 k/uL (1.3-7.7); Neutrophils % (A) 82 %; Platelet Count 177 k/uL (150-450); RBC 4.32 m/uL (3.80-5.40); RDW 14.3 % (11.5-15.5); WBC 10.6 k/uL (3.8-10.6)
[2018-08-24 10:43] LABS: ALT 19 U/L (9-52); AST 20 U/L (14-36); African American GFR (CKD) >90 (>60 ml/min/1.73 sqM); Blood Urea Nitrogen 10 mg/dL (7-17); LDH 421 U/L (313-618); Uric Acid 5.5 mg/dL (3.7-7.4)
[2018-08-24 10:59] LABS: Glucose 89 mg/dL (74-99)
[2018-08-24 11:44] VITALS: BP 142/78; PULSE 108; RESP 15; TEMP 98.7
--- NOTE | 2018-10-07 08:06 | P.MSEPDOC ---
Presenting Problems - Arrival Data Date of Arrival on Unit: 08/24/18 Time of Arrival on Unit: 09:16 Mode of Transport: Ambulatory - Complaint OB-Reason for Admission/Chief Complaint: PIH Medical History - Information : 2 Para: 1 Term: 1 : 0 Abortions: Spontaneous or Elective: 0 Number of Living Children: 1 - Gestational Age Gestational Age by KISHA (wks/days): 37 Weeks and 6 Days - History Complications: GDM Review of Systems - Review of Systems Constitutional: No problems Breast: No problems ENT: No problems Cardiovascular: No problems Respiratory: No problems Gastrointestinal: No problems Genitourinary: No problems Musculoskeletal: No problems Neurological: No problems Skin: No problems Vital Signs - Temperature Temperature: 98.7 F Temperature Source: Oral - Pulse Pulse Oximetery Pulse Rate: 108 Pulse Assessment Method: Pulse Oximetry - Respirations Respiratory Rate: 15 Oxygen Delivery Method: Room Air O2 Sat by Pulse Oximetry: 98 - Blood Pressure Right Arm Sitting Blood Pressure: 142/78 Blood Pressure Mean: 99 Blood Pressure Source: Automatic Cuff Medical Screen Scoring (Pre) - Cervical Exam Dilation: Exam Deferred Effacement: Exam Deferred Membranes: Intact - Uterine Contractions Duration: N/A Intensity: N/A - Maternal Vital Signs Maternal Temperature: N/A Maternal Blood Pressure: Systolic >139 = 2 Signs of Preeclampsia: Headache = 1 Maternal Respirations: N/A - Maternal Trauma Maternal Trauma: N/A - Assessment - Baby A Baseline FHR: 145 Heart Rate - NICHD Category: Category I (Normal) = 0 NST: Reactive Position: N/A Station: N/A - Total Score - Baby A Total Score - Baby A: 3 - Level of Risk - Baby A Level of Risk - Baby A: Low (0-5) Physician Notification (Pre) - Physician Notified Physician Notified Date: 08/24/18 Physician Notified Time: 11:13 Spoke With: Dr Aguirre New Order Received: Yes Disposition - Disposition OB Disposition: Triage, Discharge to home, Written follow up instructions reviewed Discharge Date: 08/24/18 Discharge Time: 11:25 I agree with the RN Medical Screening Exam: No Physician's MSE Comment: Inadequate documentation Risk & Benefit of care provided described in d/c instruction: No Diagnosis: RELATED CONDITIONS, UNSPECIFIED, THIRD TRIMESTER
== END 2018-08-24 11:25 | disposition home or self-care (01) ==
LOC: FBPOP 09:16
PROVIDERS: ATTEND Obstetrics & Gynecology
DX: O26.93 Pregnancy related conditions, unspecified, third trimester (principal); Z3A.37 37 weeks gestation of pregnancy
CPT/HCPCS: 59025; 81001; 82565; 82570; 82947; 83615; 84156; 84450; 84460; 84520; 84550; 85025; 99215

== ENCOUNTER 2018-09-01 10:13 | Inpatient (IN) | payer BC, OTHER ==
[2018-09-01] MEDS ORDERED: CITRIC ACID-SODIUM CITRATE 15 ML CUP PO ONE (11:03)
[2018-09-01] MEDS ORDERED: ceFAZolin 3 GM in SODIUM CHLORIDE 0.9% 100 ML IVPB ONE (11:03)
[2018-09-01 11:10] VITALS: BMI 42.6
[2018-09-01] MEDS: LACTATED RINGERS 1,000 ML IV SCH ×4 (11:35→22:27)
[2018-09-01 11:40] LABS: Basophils % (A) 0 %; Eosinophils % (A) 0 %; HCT 37.1 % (34.0-46.0); HGB 12.7 gm/dL (11.4-16.0); Lymphocytes # (A) 1.1 k/uL (1.0-4.8); Lymphocytes % (A) 13 %; MCH 30.6 pg (25.0-35.0); MCHC 34.2 g/dL (31.0-37.0); MCV 89.4 fL (80.0-100.0); Mean Platelet Volume 7.5; Monocytes # (A) 0.4 k/uL (0-1.0); Monocytes % (A) 4 %; Neutrophils # (A) 6.6 k/uL (1.3-7.7); Neutrophils % (A) 80 %; Platelet Count 170 k/uL (150-450); RBC 4.14 m/uL (3.80-5.40); RDW 14.1 % (11.5-15.5); WBC 8.2 k/uL (3.8-10.6)
--- NOTE | 2018-09-01 12:11 | P.HPOB ---
History of Present Illness H&P Date: 09/01/18 Chief Complaint: Here for repeat at 39 weeks, undesired fertility. This is a 23-year-old white female 2 para 1001 who is here at 39 weeks gestation with an EDC of 09/08/2018. Patient presents for repeat section and tubal ligation. Fetus has been active throughout the . She is having mild irregular contractions. She denies vaginal bleeding or fluid leakage. Past medical history is significant for pilonidal cyst, hidradenitis supper itiva, and preeclampsia in the past in 2018. Past surgical history section for preeclampsia in June 2017, low transverse. ALLERGIES none known. Current medications vitamin daily, insulin therapy. Family history significant for diabetes and hypertension. Social history patient is single, previous 1 pack per day tobacco, she denies alcohol or drug use. history is significant for blood type O positive, rubella status immune. Urine culture, hepatitis B surface antigen, HIV testing, gonorrhea and chlamydia cultures, group B strep cultures all negative. One-hour Glucola elevated, 3 hour GTT consistent with gestational diabetes. On exam this is a pleasant white female who is 5 foot 10 inches, 297 pounds, blood pressure 129/75. The general physical exam is within normal limits. There is a pilonidal cyst noted in the sacral area that is inflamed approximatel y 1.5 cm in diameter. There are multiple tattoos noted across the skin as well as body piercings. Cervix is long thick and closed. Abdomen is obviously gravid with a fundal height over 40 cm. is vertex to Willis's maneuvers. heart rate is consistent with reactive NST. Impression: 39 week intrauterine , previous section declining . Undesired fertility. Gestational diabetes. Pilonidal cyst noted on exam. Plan: For repeat section with spinal analgesia now. Antibiotics given. Tubal ligation with Filshie clips. All consents reviewed and signed. All questions answered. Review of Systems Constitutional: Reports as per HPI Past Medical History Past Medical History: Skin Disorder Additional Past Medical History / Comment(s): gestational diabetes,ovarian cyst,hydradentis suppurativa(skin disorder) History of Any Multi-Drug Resistant Organisms: None Reported Past Surgical History: Appendectomy, Section Past Anesthesia/Blood Transfusion Reactions: No Reported Reaction Additional Past Anesthesia/Blood Transfusion Reaction / Comment(s): no hx blood transfusion Past Psychological History: ADD/ADHD, Anxiety Smoking Status: Former smoker Past Alcohol Use History: None Reported Additional Past Alcohol Use History / Comment(s): started smoking at age 13, quit smoking at beginning of preg, resumed a couple of weeks ago Past Drug Use History: None Reported - Past Family History Father History Unknown: Yes Family Medical History: Hypertension Additional Family Medical History / Comment(s): mother diabetes and hypertension Mother Family Medical History: Diabetes Mellitus, Hypertension Medications and Allergies Home Medications Medication Instructions Recorded Confirmed Type Umj-Gyln-Awzhs Acid 1 cap PO DAILY 07/08/17 09/01/18 History [-U Capsule (formulary)] Insulin Aspart (Niacinamide) 4 unit SQ W/SUPPER 08/30/18 09/01/18 History [Fiasp 100 Unit/ml Vial] Insulin Degludec [Tresiba] 4 units SQ DAILY 08/30/18 09/01/18 History Allergies Allergy/AdvReac Type Severity Reaction Status Date / Time No Known Allergies Allergy Verified 09/01/18 11:15 Exam Vital Signs Temp Pulse Resp BP Pulse Ox 09/01/18 11:02 98.3 F 111 H 20 129/75 97 Intake and Output 08/31/18 09/01/18 09/01/18 22:59 06:59 14:59 Output Total 150 Balance -150 Output: Urine 150 Uretheral (Whatley) 150 See dictation under HPI please Results Result Diagrams: 09/01/18 11:22 Assessment and Plan Assessment: 39 week intrauterine , previous section declining , undesired fertility, pilonidal cyst, morbid obesity. Plan: For repeat section and tubal ligation now. Antibiotics given. All consents reviewed and signed. All questions answered. Time with Patient: Less than 30
[2018-09-01] MEDS ORDERED: LACTATED RINGERS 1,000 ML BAG IV ONE (12:14)
[2018-09-01] MEDS ORDERED: ONDANSETRON 4 MG/2 ML VIAL ONE (12:14)
[2018-09-01] MEDS ORDERED: MORPHINE SULFATE (PF) 0.3 MG/0.3 ML SYR ONE (12:14)
[2018-09-01] MEDS ORDERED: OXYTOCIN 10 UNIT/ML 1 ML VIAL ONE (12:14)
[2018-09-01] MEDS ORDERED: NALBUPHINE 10 MG/ML (1 ML AMP) ONE (12:14)
[2018-09-01 12:28] LABS: Glucose,Whole Blood 83 mg/dL (75-99)
[2018-09-01] MEDS ORDERED: ONDANSETRON 4 MG/2 ML VIAL IVP PRN ×2 (12:59→13:10)
[2018-09-01] MEDS ORDERED: METOCLOPRAMIDE 5 MG/ML 2 ML VIAL IVP PRN ×2 (12:59→13:10)
[2018-09-01] MEDS ORDERED: MORPHINE SULFATE 2 MG/ML SYRINGE IVP PRN (12:59)
[2018-09-01] MEDS ORDERED: NALOXONE 0.4 MG/ML 1 ML VIAL IV PRN ×2 (12:59→13:10)
[2018-09-01] MEDS ORDERED: NALBUPHINE 10 MG/ML (1 ML AMP) IV PRN (12:59)
[2018-09-01] MEDS ORDERED: diphenhydrAMINE 50 MG/ML 1 ML VIAL IVP PRN ×3 (12:59→13:10)
[2018-09-01] MEDS ORDERED: ZOLPIDEM 5 MG TAB PO PRN (13:10)
[2018-09-01] MEDS ORDERED: diphenhydrAMINE 25 MG CAP PO PRN (13:10)
[2018-09-01] MEDS ORDERED: diphenhydrAMINE 50 MG CAP PO PRN (13:10)
[2018-09-01] MEDS ORDERED: SIMETHICONE 80 MG CHEWABLE PO PRN (13:10)
[2018-09-01] MEDS ORDERED: ACETAMINOPHEN TAB 325 MG TAB PO PRN (13:10)
--- NOTE | 2018-09-01 13:10 | P.OP ---
Date of Procedure: 09/01/18 Preoperative Diagnosis: 39 weeks intrauterine , previous section declining , undesired fertility, morbid obesity. Gestational diabetes. Postoperative Diagnosis: Same, liveborn male infant. Nuchal cord 1, true knot in the umbilical cord noted. Procedure(s) Performed: Repeat low transverse section, tubal ligation with Filshie clips Anesthesia: spinal Surgeon: Yarely Mora Processing Engineer #1: Mj Melton Estimated Blood Loss (ml): 500 IV fluids (ml): 900 Urine output (ml): 200 Pathology: none sent Condition: stable Disposition: PACU Description of Procedure: Patient is brought back to the operating suite where a spinal analgesia is administered without difficulty. She's placed in the dorsal supine position with left lateral uterine displacement. Antibiotics are given. The appropriate timeout was performed to assure proper patient and procedural identification. Whatley catheter placed to direct drainage, Bicitra given. The abdomen is wrapped and draped in usual sterile fashion. Analgesia is checked and noted to be adequate. A low transverse skin incision is made in this is carried down through the subcutaneous tissue which is approximately 8 cm deep. Fascia is isolated, scored, extended bilaterally with curved Fuller scissors. Peritoneum is next identified and incised, there is no bowel or bladder involvement. The large ring retractors placed in the abdomen for exposure. A low transverse uterine incision is made, carried down through the myometrium. Artificial amniorrhexis reveals clear fluid. The incision is extended bluntly. 's head is delivered in the occiput anterior position. There is a nuchal cord 1 that was reduced. The patient is officially delivered of a liveborn male infant at 1239 hrs. Umbilical cord is doubly clamped and ligated, he is handed to waiting nurses for evaluation where scores of 8 and 9 at one and 5 minutes respectively are given. There is a true knot in the umbilical cord. The placenta is delivered manually, it is inspected and noted to be intact with trivascular cord at 1240 hrs. Uterus is swept clean with a sterile sponge, and externalized for better visualization. The uterine incision is closed in a running locking full- thickness stitch of 0 Vicryl suture. Bilateral tubes and ovaries are inspected and noted to be normal. Filshie clips are placed in the isthmic portion of both tubes, with care to traverse the entire tubal diameter into the mesosalpinx. Abdomen is suctioned with suction on guard. Uterus is gently placed back into the abdominal cavity. Bilateral gutters are inspected and cleaned. Hemostasis is excellent. Peritoneum was allowed to close by secondary intention. Fascia is closed in a running stitch of 0 Vicryl with over ligation in the midline. Subcutaneous tissue is irrigated, clean and dry. 4-0 undyed Monocryl is used for final skin closure. Steri-Strips and Mastisol are applied to the wound along with a dressing. Whatley is noted to be clear in the Whatley tube. Patient is brought back to the recovery room in stable condition with a blood pressure of 118/64, pulse 80, respirations 20, 98% O2 saturation. Blood sugar prior to surgery was 83. No additional blood sugars will be needed at this time. To our GTT testing will be done in 6 weeks. Patient is requesting circumcision for her infant son.
[2018-09-01] MEDS: KETOROLAC 30 MG/ML 1 ML VIAL IVP PRN ×2 (14:12→20:00)
[2018-09-01] MEDS: SENNOSIDES-DOCUSATE SODIUM 1 EACH TAB PO SCH (22:27)
[2018-09-02] MEDS: KETOROLAC 30 MG/ML 1 ML VIAL IVP PRN ×2 (02:15→11:45)
[2018-09-02] MEDS: HYDROcodone/APAP 5-325MG 1 EACH TAB PO PRN ×3 (07:33→23:13)
--- NOTE | 2018-09-02 07:44 | P.PN ---
Subjective Progress Note Date: 09/02/18 Principal diagnosis: Postoperative day #1 Patient states she is tired, the pilonidal cyst is causing her pain. Objective - Vital Signs Vital signs: Vital Signs Temp 97.8 F 09/02/18 04:00 Pulse 84 09/02/18 04:00 Resp 18 09/02/18 04:00 BP 104/62 09/02/18 04:00 Pulse Ox 96 09/02/18 04:00 Intake & Output 09/01/18 09/02/18 09/02/18 18:59 06:59 18:59 Intake Total 50 Output Total 1150 400 Balance -1100 -400 Intake: Oral 50 Output: Urine 150 400 Uretheral (Whatley) 150 Estimated Blood Loss 1000 - Constitutional General appearance: Present: cooperative, morbidly obese - EENT Eyes: Present: PERRLA ENT: Present: hearing grossly normal - Neck Carotids: bilateral: upstroke normal - Respiratory Respiratory: bilateral: CTA - Cardiovascular Rhythm: regular - Gastrointestinal Gastrointestinal Comment(s): Incision clean and dry, intact, Steri-Strips applied. General gastrointestinal: Present: normal bowel sounds - Genitourinary Genitourinary Comment(s): Fundus is firm, midline, symmetric, 18 week size, nontender. - Integumentary Integumentary Comment(s): The 1.5 cm pilonidal cyst is noted. It is mildly erythematous, and unchanged from examination yesterday. - Neurologic Neurologic: Present: CNII-XII intact - Musculoskeletal Musculoskeletal: Present: gait normal - Psychiatric Psychiatric: Present: A&O x's 3, appropriate affect, intact judgment & insight - Labs CBC & Chem 7: 09/01/18 11:22 Assessment and Plan Assessment: Postoperative day #1, status post repeat and tubal ligation. Pilonidal cyst noted. Plan: I'm encouraging hot showers today. We'll advance diet and activity. Circumcision this morning. Likely discharge home tomorrow. Time with Patient: Less than 30
--- NOTE | 2018-09-02 09:04 | P.PN ---
Progress Note - Text Progress Note Date: 09/02/18 POD 1 c/s with duramorph spinal. Pain in tail bone, known pilonidal cyst. No fevers. no chills. Strength is 5/5, no weakness, no parasthesia. Pain otherwise controlled, minimal pruritis. ambulating.
[2018-09-02] MEDS: SENNOSIDES-DOCUSATE SODIUM 1 EACH TAB PO SCH ×2 (09:40→19:31)
[2018-09-02] MEDS: IBUPROFEN 600 MG TAB PO PRN ×2 (11:50→17:37)
[2018-09-02 11:56] LABS: Basophils % (A) 0 %; Eosinophils # (A) 0.1 k/uL (0-0.7); Eosinophils % (A) 1 %; HCT 34.6 % (34.0-46.0); HGB 11.3 gm/dL (11.4-16.0); Lymphocytes # (A) 1.3 k/uL (1.0-4.8); Lymphocytes % (A) 14 %; MCH 30.2 pg (25.0-35.0); MCHC 32.8 g/dL (31.0-37.0); MCV 92.1 fL (80.0-100.0); Mean Platelet Volume 8.3; Monocytes # (A) 0.5 k/uL (0-1.0); Monocytes % (A) 5 %; Neutrophils % (A) 78 %; Platelet Count 168 k/uL (150-450); RBC 3.75 m/uL (3.80-5.40); RDW 14.2 % (11.5-15.5); WBC 8.9 k/uL (3.8-10.6)
[2018-09-03] MEDS: IBUPROFEN 600 MG TAB PO PRN ×2 (05:21→12:50)
[2018-09-03] MEDS: HYDROcodone/APAP 5-325MG 1 EACH TAB PO PRN (09:30)
[2018-09-03] MEDS: SENNOSIDES-DOCUSATE SODIUM 1 EACH TAB PO SCH (09:30)
--- NOTE | 2018-09-03 09:37 | P.DS ---
Providers Date of admission: 09/01/18 10:13 Expected date of discharge: 09/03/18 Attending physician: Yarely Mora Primary care physician: Stated None Hospital Course: This is a 23-year-old white female 2 para 1001 EDC 09/08/2018 at 39 weeks gestation. Patient presented for repeat section and tubal ligation for undesired fertility. is essentially unremarkable, blood type O positive, rubella status immune. Group B strep cultures negative. Please see my dictated history and physical for details. Mentation patient was noted to have a small pilonidal cyst at the base of the sacral spine. It was small, approximate 1.5 cm, but tender. She did undergo her repeat section and tubal ligation and gave to a liveborn male with scores of 8 and 9 at one and 5 minutes respectively. weighed 8 lbs. 1 oz. or 3670 g. Estimated blood loss 500 mL's. Please see my dictated operative note for details. This morning the patient's incision is clean and dry and intact, well approx imated. Fundus is firm and in the midline, symmetric and 18 week size. Extremities are positive for +1 edema. Vital signs are stable and she has remained afebrile. Her biggest complaint is. The pilonidal cyst is larger, more tender, and she is wishing potential surgical palliation. Her breasts are not engorged, infant is doing well, circumcision has been performed. I have consulted general surgery 2 come by and assessed the cyst, with possible [place] at the bedside prior to discharge home. Patient will be discharged home later today with instructions to follow-up with me in the office in 2 weeks for incision check. She is reminded no intercourse, tampons or douching. She will use [id number]-[id number] Advil or Aleve as needed for pain, or ibuprofen 200 mg pills, 3 every 6 hours as needed. She will call with any fevers shakes or chills, foul smelling or copious lochia, with the passage of large blood clots, or indeed with any other concerns. infant will follow-up with slasher sawyer as per recommendations. Patient Condition at Discharge: Good Plan - Discharge Summary Discharge Rx Participant: No New Discharge Prescriptions: No Action Sym-Sffy-Onmmp Acid [-U Capsule (formulary)] 1 cap PO DAILY Insulin Aspart (Niacinamide) [Fiasp 100 Unit/ml Vial] 4 unit SQ W/SUPPER Insulin Degludec [Tresiba] 4 units SQ DAILY Discharge Medication List Dry-Noig-Ltznt Acid [-U Capsule (formulary)] 1 cap PO DAILY 07/08/17 [History] Insulin Aspart (Niacinamide) [Fiasp 100 Unit/ml Vial] 4 unit SQ W/SUPPER 08/30/18 [History] Insulin Degludec [Tresiba] 4 units SQ DAILY 08/30/18 [History] Follow up Appointment(s)/Referral(s): Yarely Mora MD [STAFF PHYSICIAN] - 2 Weeks
[2018-09-03 09:44] VITALS: BP 140/74; PULSE 95; RESP 18; TEMP 97.7
--- NOTE | 2018-09-03 11:05 | P.GSCN ---
History of Present Illness Consult date: 09/03/18 Reason for Consult: Pilonidal cyst History of present illness: This a 23-year-old female who has had issues with a chronically inflamed pilonid al cyst. Patient was really diagnosis upon ounces approximately 9 months ago. The patient is immediate . She has had a performed. She's had chronic drainage from her pilonidal cyst. Past Medical History Past Medical History: Skin Disorder Additional Past Medical History / Comment(s): gestational diabetes,ovarian cyst,hydradentis suppurativa(skin disorder) History of Any Multi-Drug Resistant Organisms: None Reported Past Surgical History: Appendectomy, Section Past Anesthesia/Blood Transfusion Reactions: No Reported Reaction Additional Past Anesthesia/Blood Transfusion Reaction / Comm: no hx blood transfusion Past Psychological History: ADD/ADHD, Anxiety Smoking Status: Former smoker Past Alcohol Use History: None Reported Additional Past Alcohol Use History / Comment(s): started smoking at age 13, quit smoking at beginning of preg, resumed a couple of weeks ago Past Drug Use History: None Reported - Past Family History Father History Unknown: Yes Family Medical History: Hypertension Additional Family Medical History / Comment(s): mother diabetes and hypertension Mother Family Medical History: Diabetes Mellitus, Hypertension Medications and Allergies Home Medications Medication Instructions Recorded Confirmed Type Ppi-Wddj-Zxgkh Acid 1 cap PO DAILY 07/08/17 09/01/18 History [-U Capsule (formulary)] Insulin Aspart (Niacinamide) 4 unit SQ W/SUPPER 08/30/18 09/01/18 History [Fiasp 100 Unit/ml Vial] Insulin Degludec [Tresiba] 4 units SQ DAILY 08/30/18 09/01/18 History Allergies Allergy/AdvReac Type Severity Reaction Status Date / Time No Known Allergies Allergy Verified 09/01/18 11:15 Surgical - Exam Vital Signs Temp Pulse Resp BP Pulse Ox 98.3 F 111 H 20 129/75 97 09/01/18 11:02 09/01/18 11:02 09/01/18 11:02 09/01/18 11:02 09/01/18 11:02 - General well developed, well nourished, no distress - Integumentary Chronically inflamed pilonidal cyst with drainage. There is no evidence of a definite abscess. Results - Labs 09/02/18 06:51 Abnormal Lab Results - Last 24 Hours (Table) 09/02/18 Range/Units 06:51 RBC 3.75 L (3.80-5.40) m/uL Hgb 11.3 L (11.4-16.0) gm/dL Assessment and Plan Assessment: Chronically inflamed pilonidal sinus. Patient will follow-up in the office. We will plan for outpatient pilonidal cystectomy.
== END 2018-09-03 13:22 | disposition home or self-care (01) | DRG 785 ==
LOC: 4FBP 10:13
PROVIDERS: ADMIT Obstetrics & Gynecology; ATTEND Obstetrics & Gynecology
PROC: 0UL70CZ Occlusion of Bilateral Fallopian Tubes with Extraluminal Device, Open Approach (ICD-10-PCS; 2018-09-01)
PROC: 10D00Z1 Extraction of Products of Conception, Low, Open Approach (ICD-10-PCS; principal; 2018-09-01 12:14)
DX: O34.211 Maternal care for low transverse scar from previous cesarean delivery (principal); O99.214 Obesity complicating childbirth; E66.01 Morbid (severe) obesity due to excess calories; O24.424 Gestational diabetes mellitus in childbirth, insulin controlled; O69.2XX0 Labor and delivery complicated by other cord entanglement, with compression, not applicable or unspecified; O99.72 Diseases of the skin and subcutaneous tissue complicating childbirth; O99.344 Other mental disorders complicating childbirth; F41.9 Anxiety disorder, unspecified; F90.9 Attention-deficit hyperactivity disorder, unspecified type; L05.91 Pilonidal cyst without abscess; Z37.0 Single live birth; Z30.2 Encounter for sterilization; N85.8 Other specified noninflammatory disorders of uterus; N83.209 Unspecified ovarian cyst, unspecified side; Z3A.39 39 weeks gestation of pregnancy; Z79.4 Long term (current) use of insulin; Z79.899 Other long term (current) drug therapy; Z87.891 Personal history of nicotine dependence; Z90.49 Acquired absence of other specified parts of digestive tract; Z83.3 Family history of diabetes mellitus; Z82.49 Family history of ischemic heart disease and other diseases of the circulatory system
CPT/HCPCS: 85025; 86850; 86900; 86901